=== PATIENT | female | born 2000 | race African-American/Black ===

== ENCOUNTER 2022-09-09 14:34 | Emergency (ER) | payer OTHER ==
[~2022-09-09] VITALS: Ht 152.4 cm; Wt 52.2 kg
[2022-09-09 14:41] VITALS: BP 115/79; PULSE 78; RESP 17; TEMP 97.7; O2SAT 98
[2022-09-09 14:46] VITALS: BP 114/72; PULSE 71; RESP 20; TEMP 97; O2SAT 99
[2022-09-09] MEDS ORDERED: IBUPROFEN 600 MG TAB PO ONE (15:30)
[2022-09-09] MEDS ORDERED: IBUPROFEN 400 MG TAB PO ONE (15:40)
[2022-09-09] MEDS ORDERED: KETOROLAC 15 MG/ML VIAL IM ONE (15:50)
[2022-09-09] MEDS ORDERED: IBUP-1842 PO (16:41)
[2022-09-09] MEDS ORDERED: LID5T TP (16:41)
[2022-09-09] MEDS ORDERED: KETOROLAC 15 MG/ML VIAL ONE (17:44)
--- NOTE | 2022-09-09 17:45 | NUR ---
PT. WALKED TO BED 07
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
[2022-09-09 18:50] VITALS: BP 111/70; PULSE 70; RESP 16; TEMP 97.8; O2SAT 99
--- NOTE | 2022-09-09 18:52 | NUR ---
Patient discharged with v/s stable. Written and verbal after care instructions given and explained. Patient verbalized understanding. Ambulatory with steady gait. All questions addressed prior to discharge. Advised to follow up with PMD.
== END 2022-09-09 18:45 | disposition home or self-care (01) ==
LOC: MED 14:34
DX: S39.012A Strain of muscle, fascia and tendon of lower back, initial encounter (principal); S20.211A Contusion of right front wall of thorax, initial encounter; Z79.899 Other long term (current) drug therapy; V49.88XA Car occupant (driver) (passenger) injured in other specified transport accidents, initial encounter; Y93.89 Activity, other specified; Y92.89 Other specified places as the place of occurrence of the external cause; Y99.8 Other external cause status
CPT/HCPCS: 71101; 72100; 72131; 81025; 96372; 99285; J1885